=== PATIENT | male | born 1995 | race Caucasian/White ===

== ENCOUNTER 2016-12-11 00:50 | Emergency (ER) | payer BC ==
[~2016-12-11] VITALS: Ht 175.3 cm; Wt 79.1 kg
[2016-12-11 00:58] VITALS: TEMP 36.6; Ht 175.3 cm; Wt 79.1 kg
[2016-12-11] MEDS ORDERED: DEXAMETHASONE SOD INJ 10 MG/ML VIAL IM ONE (01:45)
[2016-12-11] MEDS ORDERED: ATIVAN 1MG HOMEPACK PO ONE (01:45)
[2016-12-11] MEDS ORDERED: ATV/1 PO (02:09)
[2016-12-11] MEDS ORDERED: PRED50TA PO (02:09)
[2016-12-11 02:19] VITALS: BP 131/67; PULSE 54; O2SAT 98
--- NOTE | 2016-12-11 06:14 | EMERGENCY ROOM VISIT NOTE ---
History Report prepared by Tammy: Susi Nair Under the Supervision of: Dr. Anabell Koch D.O. First contact with patient: 01:03 Chief Complaint: ANXIETY Stated Complaint: ECZEMA,NERVOUSNESS History of Present Illness The patient is a 21 year old male who presents to the Emergency Room with complaints of worsening anxiety starting a week ago. The patient reports that he has eczema that flares up when he is stressed. He reports that he has two exams coming up this week and believes that is the cause of his current eczema flare up. He notes that he can't move his neck because his skin hurts so much. He reports that he scratches throughout the night and this causes him to become anxious. He states that the more he scratches, the more anxious he becomes. The patient reports that tonight he was unable to fall asleep because he was so anxious so he decided to come in to the ED. The patient notes that he has atopic medication, but it has not worked. The patient denies thoughts of hurting himself and others. Source of History: patient Onset: week ago Position: other (global) Quality: other (global) Timing: worsening Associated Symptoms: + neck pain (on skin) Note: The patient denies thoughts of hurting himself and others. Review of Systems See HPI for pertinent positives & negatives. A total of 10 systems reviewed and were otherwise negative. Past Medical & Surgical Medical Problems: (1) Anxiety (2) Eczema Family History No pertinent family history Social History Smoking Status: Never Smoker Alcohol Use: occasionally Marital Status: single Occupation Status: [employer] student Current/Historical Medications Scheduled Lorazepam (Ativan), 1 MG PO Q4 Prednisone (Prednisone), 50 MG PO DAILY Allergies Coded Allergies: NO KNOWN DRUG ALLERGIES (Verified Allergy, Unknown, UNKNOWN, 12/11/16) Uncoded Allergies: CATS (Allergy, Unknown, itching, 12/11/16) DOG (Allergy, Unknown, itching, 12/11/16) Physical Exam Vital Signs Date Time Temp Pulse Resp B/P (MAP) Pulse Ox O2 Delivery O2 Flow Rate FiO2 12/11/16 02:19 54 20 131/67 98 12/11/16 00:58 36.6 57 18 134/72 96 Room Air Physical Exam General: patient appears anxious and uncomfortable. HEENT: Head - normocephalic and atraumatic. Pupils are equal, round, and reactive to light. Extraocular eye muscles are intact and sclera are anicteric. Ears - bilaterally patent canals with noninjected tympanic membranes and no evidence of hemotympanum. Nose - moist nasal mucosa without discharge. Mouth - moist buccal mucosa. Oropharynx is nonerythematous and there is no tonsillar exudate or edema noted. Neck: Supple; no JVD, nuchal rigidity, cervical lymphadenopathy. Heart: Tachycardic rate and regular rhythm. There is a normal S1 and S2 with no murmurs, clicks, or gallops appreciated. Lungs: Clear to auscultation bilaterally with no wheezes, rales, or rhonchi. Abdomen: Soft, completely nontender, nondistended, with good bowel sounds. There are no palpable pulsatile masses or hepatosplenomegaly. There is no guarding, rigidity, or rebound noted. Extremities: No evidence of cyanosis, clubbing, or edema. There are easily palpable peripheral pulses. Skin: The patient has erythema about his neck and upper extremities consistent with atopic dermatitis. There are some superficial scratches but no obvious signs of infection. Psych: appears anxious, denies suicidal or homicidal ideations. Medical Decision & Procedures Medications Administered Medications (Trade) Dose Ordered Sig/Chava Route Start Time Stop Time Status Last Admin Dose Admin Dexamethasone Sodium Phosphate (Decadron Inj) 10 mg NOW ONCE IM 12/11/16 01:45 12/11/16 01:46 DC 12/11/16 01:49 10 MG Lorazepam (Ativan 1MG Home Pack) 1 homepack UD ONCE PO 12/11/16 01:45 12/11/16 01:46 DC 12/11/16 01:49 1 HOMEPACK Procedure Lorazepam PO Decadron Inj IM ED Course 0118: Past medical records reviewed. The patient was evaluated in room A10. A complete history and physical exam was performed. 0145: Ordered Lorazepam 1 homepack PO, Decadron Inj 10 mg IM. Medical Decision The patient is a 21 year old male who presents to the Emergency Room with complaints of worsening anxiety. I attest that I have personally reviewed the patient's current medication list. Patient was found to have normal blood pressure on screening and does not require follow-up. Differential diagnoses include anxiety, mood disorder, exacerbation of atopic dermitis, OCD. The patient admits that he has a history of anxiety and believes that he translates this to the scratching of his eczema. He does admit to being under significant increased stress secondary to school. The patient explains that he has taken previous sleep aids in the past which include Ambien and Xanax with no improvement. I talked about the side effects of steroid therapy, increased anxiety and sleep deprivation. We will give him a dose of Decadron here and start him on a prednisone burst but also give him a prescription for Ativan to help counteract this affects. I strongly encouraged the patient have close follow-up with [employer] on-campus. He was told that he can return here to the ER if symptoms worsened. Impression Primary Impression: Anxiety Additional Impression: Atopic dermatitis Scribe Attestation The scribe's documentation has been prepared under my direction and personally reviewed by me in its entirety. I confirm that the note above accurately reflects all work, treatment, procedures, and medical decision making performed by me. Departure Information Dispostion Home / Self-Care Prescriptions Lorazepam (ATIVAN) 1 Mg Tab 1 MG PO Q4 for Anxiety, #14 TAB Prov: Anabell Koch D.O. 12/11/16 Prednisone (Prednisone) 50 Mg Tab 50 MG PO DAILY for 4 Days, TAB Prov: Anabell Koch D.O. 12/11/16 Referrals No Doctor, Assigned (PCP) Forms HOME CARE DOCUMENTATION FORM, IMPORTANT VISIT INFORMATION Patient Instructions My [facility] Additional Instructions Rest. Take prednisone - 50mg a day starting Sat. Take ativan - 1 tab. every 4 hours for anxiety You must follow up with [facility] to discuss our anxiety Return to the ER if symptoms worsen. Problem Qualifiers
== END 2016-12-11 02:21 | disposition home or self-care (01) ==
LOC: C.EDB 00:53 → C.EDA 02:21
DX: F41.9 Anxiety disorder, unspecified (principal); L20.9 Atopic dermatitis, unspecified; Z79.899 Other long term (current) drug therapy